=== PATIENT | female | born 1975 | race Caucasian/White ===

== ENCOUNTER 2017-09-26 15:00 | Observation (INO) | payer OTHER ==
[~2017-09-26] VITALS: Ht 165.1 cm; Wt 76.2 kg
[~2017-09-26 15:00] MED LIST: ACETAMINOPHEN-1 EAC1 PO; AUGMENTIN 875875 MG PO; LIPITOR 20 MG T20 M1 PO; OMEPRAZOLE 20 M20 M1 PO
[2017-09-26 15:19] VITALS: BP 128/76
[2017-09-26] MEDS ORDERED: HYDROXYZINE HCL25 M1 PO (15:24)
[2017-09-26] MEDS ORDERED: CELEXA40 MG PO (15:24)
[2017-09-26] MEDS ORDERED: PHENTERMINE HCL30 MG PO (15:24)
--- NOTE | 2017-09-26 15:26 | NUR ---
SEIZURE PADS PLACED
[2017-09-26 15:35] LABS: ABSOLUTE LYMPHOCYTES 1.5 thou/uL (0.8-5.3); ABSOLUTE MONOCYTES 0.4 thou/uL (0.0-1.2); ABSOLUTE NEUTROPHILS 5.2 thou/uL (1.6-8.1); BASOPHILS 0.2 %; EOSINOPHILS 0.5 %; HEMATOCRIT 37.7 % (37.0-47.0); HEMOGLOBIN 12.5 gm/dL (12.0-15.0); LYMPHOCYTES 20.5 %; MCH 31.5 pg (26.0-34.0); MCV 95.5 fL (80.0-100.0); MPV 7.8 fl. (7.2-11.1); NUCLEATED RBCS 0 /100WBC; PLATELET COUNT* 281 thou/uL (150-400); POLYS 72.8 %; RBC 3.95 mil/uL (4.20-5.00); RDW-CV 14.1 % (10.5-14.5); WBC 7.1 thou/uL (4.0-11.0)
[2017-09-26 15:49] LABS: APTT 22.9 Seconds (25.0-31.3)
--- NOTE | 2017-09-26 15:54 | NUR ---
PRACTITIONER AT BEDSIDE DISCUSSED PUTTING 1 STAPLE IN HEAD LACERATION PT REFUSED.
[2017-09-26 15:55] LABS: ANION GAP 9 mmol/L (7-16); BUN 12 mg/dL (7-18); CALCIUM 8.4 mg/dL (8.5-10.1); CHLORIDE 97 mmol/L (98-107); CO2 26 mmol/L (21-32); CREATININE 0.9 mg/dL (0.6-1.3); GLUCOSE 107 mg/dL (70-99); POTASSIUM 4.2 mmol/L (3.5-5.1); SODIUM 132 mmol/L (136-145)
[2017-09-26 16:02] LABS: ALBUMIN 3.7 g/dL (3.4-5.0); ALKALINE PHOSPHATASE 57 U/L (46-116); MAGNESIUM 1.5 mg/dL (1.8-2.4); SGOT 21 U/L (15-37); SGPT 30 U/L (30-65); TOTAL BILIRUBIN 0.4 mg/dL (<0.1-1.0); TOTAL PROTEIN 6.7 g/dL (6.4-8.2); TROPONIN-I LEVEL <0.06 ng/mL (<0.06)
--- NOTE | 2017-09-26 16:15 | NUR ---
MARY KELLY ) NOTIFIED UPON PT RETURN FROM CT. PT CONNECTED TO MONITOR
[2017-09-26 16:32] LABS: URINE BILIRUBIN NEGATIVE (Negative); URINE BLOOD NEGATIVE (Negative); URINE CLARITY CLEAR; URINE COLOR YELLOW; URINE GLUCOSE-RANDOM NEGATIVE (Negative); URINE KETONES NEGATIVE (Negative); URINE LEUKOCYTES-REFLEX NEGATIVE (Negative); URINE NITRITE-REFLEX NEGATIVE (Negative); URINE PROTEIN NEGATIVE (Negative); URINE UROBILINOGEN 0.2 E.U./dl (0.2-1.0)
[2017-09-26 18:10] VITALS: BP 110/67
--- NOTE | 2017-09-26 18:57 | NUR ---
VSS, ASSUMED CARE OF PT FROM ER, PT HAS SEIZURE PRECAUTIONS IN PLACE AND IS ON RA AND A&O4, PT WAS SENT TO MRI WITHIN FIVE MIN OF BEING ON THE FLOOR, PT HAS A HEADACH, WILL FOLLOW WITH PLAN OF CARE AND END OF SHIFT REPORT.
[2017-09-26 20:00] VITALS: BP 97/60
[2017-09-27] VITALS: BP 105/51
[2017-09-27 04:00] VITALS: BP 97/54
--- NOTE | 2017-09-27 05:09 | NUR ---
PATIENT PROGRESSING TOWARDS GOALS: VSS ON ROOM AIR. 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 NO SEIZURES NOTED THIS SHIFT. SEIZURE PRECAUTIONS IN PLACE. PATIENT DENIES PAIN AND DISCOMFORT. UP TO BATHROOM WITH SBA. IVF INFUSING PER ORDERS. CALL LIGHT WITHIN REACH
[2017-09-27 08:00] VITALS: BP 96/51
--- NOTE | 2017-09-27 09:02 | NUR ---
VSS, ASSUMED CARE IN THE AM, ASSESSMENT PERFORMED AND CHARTED, SEIZURE PRECAUTIONS IN PLACE AND CALL LIGHT IN REACH, PT IS UP WITH STAND BY, ON RA AND IS TRACING SR ON THE MONITOR, PT DENIES ANY PAIN AND IS A&O4 AND HER GOAL IS TO D/C TO HOME AND REMAIN SEIZURE FREE ON DAY OF CARE, WILL FOLLOW WITH PLAN OF CARE.
[2017-09-27] MEDS ORDERED: KEPPRA 500 MG500 M1 PO (11:09)
[2017-09-27 12:43] VITALS: BP 96/51
--- NOTE | 2017-09-27 12:49 | EKG ---
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
--- NOTE | 2017-09-27 13:00 | NUR ---
VSS, RECIEVED D/C INSTRUCTIONS FILLED OUT D/C PAPAERS AND PROVITED MEDICATION SCRIPTS, PROVITED D/C INSTRUCTIONS, PT DENIES ANY QUESTIONS OR CONCERNS AT TIME OF D/C, GAVE BACK PT MEDICATION OUT OF PIXIS, IV AND TELE MONITOR TAKEN OUT AND OFF, PT WAS TAKEN OUT VIA WHEEL CHAIR BY STAFF TO CAR. HOURLY ROUNDS COMPLETED. ALL ITEMAS GATHERED AND PLACED WITH PT.
--- NOTE | 2017-09-27 14:58 | NUR ---
PT.DISCHARGED HOME PRIOR TO CM BEING ABLE TO SEE PT.REGARDING REFERRAL. CM UNAWARE PT.WAS DISCHARGING.
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
--- NOTE | 2017-10-13 09:34 | EEG ---
[address] [address] EEG STUDY REPORT Name: CHRIS CEDILLO Room: [address]Angel#: [id number] Admission: 09/26/17 Attend Phys: Tien Torres MD Discharge: 09/27/17 Date of : 75 Report #: [id number] THIS REPORT FOR: //name// CC: Tien Rosas DATE OF SERVICE: 09/27/2017 This patient is being evaluated for seizures. EEG was done by placing the electrode by standard 10-20 system of electrode placement. Both referential and sequential montages were used for recording. Background activity in this patient's EEG is about 11 Hz and 40 microvolt. Photic stimulation is unremarkable. This patient went to sleep that is associated with bilaterally symmetrical sleep spindle and vertex sharp waves. Throughout the records, no active epileptiform activity was noticed. IMPRESSION: This patient's EEG is within normal limits. It might be mentioned that EEG can be normal in a patient with a seizure disorder. Thank you very much for this referral. <ELECTRONICALLY SIGNED> By: Vernon Varner MD 10/13/17 0934 0833 [id number] Varner MD /nt
== END 2017-09-27 14:45 | disposition home or self-care (01) ==
LOC: M.ERS 15:00 → M.TBA-ER 16:43 → M.2W 16:43
PROVIDERS: Physician Assistant; ADMIT Internal Medicine
DX: G40.309 Generalized idiopathic epilepsy and epileptic syndromes, not intractable, without status epilepticus (principal); S01.01XA Laceration without foreign body of scalp, initial encounter; E87.1 Hypo-osmolality and hyponatremia; E83.42 Hypomagnesemia; W22.8XXA Striking against or struck by other objects, initial encounter; Y93.89 Activity, other specified; Y92.89 Other specified places as the place of occurrence of the external cause; Y99.8 Other external cause status; Z87.891 Personal history of nicotine dependence; Z72.89 Other problems related to lifestyle; Z86.011 Personal history of benign neoplasm of the brain